=== PATIENT | female | born 1995 | race Caucasian/White ===

== ENCOUNTER 2017-01-03 16:50 | Emergency (ER) | payer OTHER ==
[2017-01-03] MEDS ORDERED: NS 1,000 ML IV ONE (17:39)
[2017-01-03 17:59] LABS: % IMMATURE GRANULYOCYTES 0.3 % (0.0-1.1); ABSOLUTE IMMATURE GRANULOCYTES 0.02 10^3/uL (0.00-0.10); ADD DIFF? NO; ADD MORPH? NO; ADD SCAN? NO; ATYPICAL LYMPHOCYTE FLAG 0 (0-99); FRAGMENT RBC FLAG 30 (0-99); HEMATOCRIT 41.8 % (38.0-47.0); HEMOGLOBIN 14.4 g/dL (12.6-16.3); LEFT SHIFT FLG 0 (0-99); LIPEMIA HEMOLYSIS FLAG 90 (0-99); MEAN CELL HEMOGLOBIN 32.4 pg (27.9-34.1); MEAN CELL HEMOGLOBIN CONCENTR. 34.4 g/dL (32.4-36.7); MEAN CELL VOLUME 93.9 fL (81.5-99.8); MEAN PLATELET VOLUME 10.9 fL (8.7-11.7); PLATELET CLUMPS FLAG 10 (0-99); PLATELET COUNT 230 10^3/uL (150-400); RED BLOOD CELL COUNT 4.45 10^6/uL (4.18-5.33)
[2017-01-03 18:14] LABS: ALANINE AMINOTRANSFERASE 37 IU/L (9-52); ALBUMIN 4.8 g/dL (3.5-5.0); ALKALINE PHOSPHATASE 96 IU/L (38-126); ANION GAP 12 mEq/L (8-16); ASPARTATE AMINOTRANSFERASE 36 IU/L (14-46); BILIRUBIN,TOTAL 0.6 mg/dL (0.1-1.4); BILIRUBIN-CONJUGATED 0.1 mg/dL (0.0-0.5); BILIRUBIN-UNCONJUGATED 0.5 mg/dL (0.0-1.1); CALCIUM 9.3 mg/dL (8.5-10.4); CARBON DIOXIDE 26 mEq/l (22-31); CHLORIDE 96 mEq/L (97-110); GLOMERULAR FILTRATION RATE > 60; GLUCOSE 93 mg/dL (70-100); POTASSIUM 3.9 mEq/L (3.5-5.2); SODIUM 134 mEq/L (134-144); TOTAL PROTEIN 7.6 g/dL (6.3-8.2)
[2017-01-03 18:39] LABS: COLOR PALE YELLOW; LEUKOCYTE ESTERASE,URINE NEGATIVE (NEGATIVE); NITRITE,URINE NEGATIVE (NEGATIVE)
[2017-01-03 18:43] LABS: BACTERIA 1+ /hpf (NONE SEEN)
[2017-01-03] MEDS ORDERED: IBUPROFEN 600 MG TAB PO ONE (19:14)
--- NOTE | 2017-01-03 19:30 | EDPHY ---
General - History Smoking Status: Never smoked Narrative: Independent physician evaluation I evaluated and participated in the management of the patient. I also evaluated the patient independently. My co-signature indicates that I have reviewed this chart and I agree with the findings and plan of care as documented. My personal H&P findings include: The patient presents to the ED with a flu-like illness for the past 2 days. She reports typical symptoms of myalgias, headache which has resolved and mild sore throat. Physical exam General Appearance: Alert, no distress Eyes: Pupils equal and round no pallor or injection ENT, Mouth: Mucous membranes moist Respiratory: There are no retractions, lungs are clear to auscultation Cardiovascular: Regular rate and rhythm Gastrointestinal: Abdomen is soft and nontender, no masses, bowel sounds normal Neurological: A&O, normal motor function, normal sensory exam, normal cranial nerves Skin: Warm and dry, no rashes Musculoskeletal: Neck is supple nontender, no clinical evidence of meningitis Extremities: symmetrical, full range of motion ED course Patient evaluated 8:30 p.m.. She will be discharged home with customary influenza aftercare instructions. (Ted Priest) CHIEF COMPLAINT: Flank pain, back ache, fever, malaise HISTORY OF PRESENT ILLNESS: Patient complains of 2 days history of the above. Gradual onset. Constant duration. [id number]. She thinks she may have a "kidney infection because I googled it." She has no dysuria. Some nausea but no vomiting. Some generalized malaise, body aches, subjective fever. No chest pain. Occasional dry cough. No shortness of breath. No abdominal pain. No neck pain or stiffness. Occasional headache when her temperature goes up. No other associated complaints or modifying factors for this. She does have ongoing lower abdominal pain, for which she has been seen several times with multiple workups over the past 3 months with no definitive diagnosis. She is not certain if this is related or not. REVIEW OF SYSTEMS: Ten systems reviewed and are negative unless otherwise noted in the HPI PCP: In Dr. Charles Hernandez SPECIALISTS: None PAST MEDICAL HISTORY: None PAST SURGICAL HISTORY: None SOCIAL HISTORY: She is a student at [employer]. Nonsmoker. Occasional alcohol. No drug use FAMILY HISTORY: Noncontributory EXAMINATION General Appearance: Alert, no distress Head: normocephalic, atraumatic Eyes: Pupils equal and round, no conjunctival pallor or injection ENT, Mouth: Mucous membranes moist. Uvula midline. Airway widely patent. Mild erythema. No exudate. Neck: Normal inspection, supple, non-tender. No meningismus or rigidity. Painless ROM in all planes. Respiratory: Lungs are clear to auscultation. No wheezing, rhonchi or crackles Cardiovascular: Regular rate and rhythm but no murmur Gastrointestinal: Abdomen is soft and nontender. Mild CVA tenderness on the right. No tympany. No rigidity. Nonacute abdomen Back: non-tender, no bony abnormalities Neurological: A&O, nonfocal, normal gait Skin: Warm and dry, no rash no petechiae. No purpura. Extremities: Nontender, no pedal edema Psychiatric: Mood and affect normal DIFFERENTIAL DIAGNOSES: Including but not limited to influenza, viral illness, UTI, pyelonephritis, renal colic MDM: 5:45 p.m. [place] of symptoms that does likely represent influenza. She is concerned about kidney infection, but I have very little concern for this. She has no dysuria. She has normal urine dip here in the ER. I have ordered influenza test, IV fluid and further laboratory studies. No meningismus. 6:45 p.m. Laboratory studies are all negative within influenza test pending. She continues to feel better with IV fluid resuscitation. 7:10 p.m. Notified that the patient now has a mild fever as documented. Ibuprofen has been ordered. 7:20 p.m. Patient re-evaluated. I informed her of the positive influenza a test she is feeling achy and does have a fever now, thus I have ordered ibuprofen and 2nd L of IV fluid. I will re-evaluate. She is in no acute distress. 8:20 p.m. Patient has been evaluated by Dr. Priest. Please see his note further details. 8:35 p.m. Patient re-evaluated. She is feeling much better than time arrival. She has received 2 L IV fluid resuscitation, Motrin p. o., Tylenol p. o.. We discussed increase fluid intake. We discuss Tamiflu. She was elect to take the medication. She is just inside the 48 hour window. We discussed the nature of the medication and that it will not alleviate her symptoms immediately. She has instructions to follow up with her primary care physician in [place]. She has ED precautions. I have answered all her questions. She is comfortable this plan and discharged home stable condition. (Antonio Sanches) - Objective Vital Signs: Initial Vital Signs Temperature (C) 99.0 F 01/03/17 16:52 Heart Rate 98 01/03/17 16:52 Respiratory Rate 18 01/03/17 16:52 Blood Pressure 117/91 H 01/03/17 16:52 O2 Sat (%) 96 01/03/17 16:52 O2 Delivery Mode Room Air Allergies/Adverse Reactions: peanuts,shellfish,cats Allergy (Uncoded 01/03/17 16:52) Home Medications: Medication Instructions Recorded Acetaminophen/Codeine 300/30Mg 1 each PO Q6 PRN #15 tab 01/03/17 [Tylenol #3 (*)] Oseltamivir Phosphate [Tamiflu 75 75 mg PO BID #10 cap 01/04/17 mg (*)] Laboratory Results: Laboratory Results 01/03/17 17:45 01/03/17 17:45 Microbiology Results: MICROBIOLOGY 01/03/17 17:00 Unspecified Urine Culture - Preliminary Medications Given: Discontinued Medications Sodium Chloride (Ns) 1,000 mls @ 0 mls/hr IV EDNOW ONE; Wide Open PRN Reason: Protocol Stop: 01/03/17 17:40 Last Admin: 01/03/17 17:56 Dose: 1,000 mls Ibuprofen (Motrin) 600 mg PO EDNOW ONE Stop: 01/03/17 19:15 Last Admin: 01/03/17 19:21 Dose: 600 mg Departure - Departure Disposition: Home, Routine, Self-Care Clinical Impression: Influenza A Condition: Good Instructions: Influenza (ED) Additional Instructions: 1. Increase fluid intake 2. Ibuprofen 600-800 mg every 8 hours as needed 3. Prescription medication as prescribed as needed 4. Follow up with primary care physician in the next 2-3 days 5. ED precautions as discussed Referrals: [facility] [Other] - As per Instructions Stand Alone Forms: School Excuse Prescriptions: Acetaminophen/Codeine 300/30Mg [Tylenol #3 (*)] 1 each PO Q6 PRN #15 tab PRN Reason: Pain, Mild Oseltamivir Phosphate [Tamiflu 75 mg (*)] 75 mg PO BID #10 cap
[2017-01-03 21:02] VITALS: BP 112/56; PULSE 87; RESP 18; TEMP 98.4; O2SAT 94
== END 2017-01-03 20:57 | disposition home or self-care (01) ==
DX: J10.1 Influenza due to other identified influenza virus with other respiratory manifestations (principal); E86.9 Volume depletion, unspecified

== ENCOUNTER 2017-11-08 12:46 | Emergency (ER) | payer OTHER ==
[2017-11-08 12:51] VITALS: BP 95/78
--- NOTE | 2017-11-08 12:56 | EDPHY ---
H & P Stated Complaint: head injury 2 days ago, LEE, nausea, dizzy since Time Seen by Provider: 11/08/17 12:55 HPI/ROS: CHIEF COMPLAINT: Concussion symptoms HISTORY OF PRESENT ILLNESS: The patient presents to the ED with complaints of mild concussion symptoms including photophobia and a mild frontal headache. The patient was elbowed in the nose several days ago while playing a pickup game. The patient did not lose consciousness. She has not taken any over-the- counter medications. She denies any neck pain, numbness, weakness, chest pain or difficulty breathing. REVIEW OF SYSTEMS: A comprehensive 10 point review of systems is otherwise negative aside from elements mentioned in the history of present illness. Source: Patient Exam Limitations: No limitations - Personal History LMP (Females 10-55): 1-7 Days Ago Current Tetanus/Diphtheria Vaccine: Yes Current Tetanus Diphtheria and Acellular Pertussis (TDAP): Yes Tetanus Vaccine Date: < 10 years - Medical/Surgical History Hx Asthma: No Hx Chronic Respiratory Disease: No Hx Diabetes: No Hx Cardiac Disease: No Hx Renal Disease: No Hx Cirrhosis: No Hx Alcoholism: No Hx HIV/AIDS: No Hx Splenectomy or Spleen Trauma: No Other PMH: chronic abd pain with neg w/u - Social History Smoking Status: Never smoked - Physical Exam Exam: General Appearance: Alert, no distress Head: Atraumatic Eyes: Pupils equal, round, reactive ENT, Mouth: No hemotympanum, no oral trauma Neck: Nontender, trachea midline Respiratory: No chest wall tender, subcutaneous air, lungs clear bilaterally Cardiovascular: Regular rate and rhythm Abdomen: Abdomen is soft and nontender, pelvis stable Skin: No lacerations, No abrasion Back: No midline T/L/S pain Extremities: Nontender, full range of motion Neurological: A&Ox3, normal motor function, normal sensory exam Constitutional: Initial Vital Signs Temperature (C) 36.6 C 11/08/17 12:49 Heart Rate 80 11/08/17 12:49 Respiratory Rate 18 11/08/17 12:49 Blood Pressure 95/78 L 11/08/17 12:49 O2 Sat (%) 94 11/08/17 12:49 O2 Delivery Mode Room Air Allergies/Adverse Reactions: peanuts,shellfish,cats Allergy (Uncoded 11/08/17 12:48) Home Medications: Medication Instructions Recorded Celexa 11/08/17 Medical Decision Making ED Course/Re-evaluation: The patient is well-appearing. She is in no acute distress. The patient's symptoms are consistent with concussion I doubt intracranial hemorrhage or skull fracture. The patient will be discharged home with a concussion aftercare instruction sheet. Differential Diagnosis: Differential diagnosis considered includes concussion, skull fracture, intracranial hemorrhage Departure - Departure Disposition: Home, Routine, Self-Care Clinical Impression: Concussion Condition: Good Instructions: Concussion (ED) Additional Instructions: 1. Take Ibuprofen or Motrin 600 mg by mouth three times a day. 2. Tylenol 650 mg every 6 hrs as needed for pain. 3. Concussion after care as directed. Referrals: [facility] C[facility],. [Clinic] - As per Instructions
== END 2017-11-08 13:15 | disposition home or self-care (01) ==
DX: S06.0X0A Concussion without loss of consciousness, initial encounter (principal); W50.0XXA Accidental hit or strike by another person, initial encounter; Y92.89 Other specified places as the place of occurrence of the external cause; Y93.9 Activity, unspecified; Y99.9 Unspecified external cause status